=== PATIENT | female | born 1955 | race Caucasian/White ===

== ENCOUNTER 2020-09-16 05:18 | Day surgery (SDC) | payer BC, MEDICAID ==
[2020-09-08 16:11] LABS: BASOPHILS % (AUTO) 0.5 % (0-1); EOSINOPHILS # (AUTO) 0.2 X10'3 (0-0.9); LYMPHOCYTES # (AUTO) 1.9 X10'3 (1.1-4.8); LYMPHOCYTES % (AUTO) 22.2 % (21-51); MEAN CORPUSCULAR HEMOGLOBIN 31.3 PG (27.0-31.0); MEAN CORPUSCULAR VOLUME 92.2 FL (78-98); MEAN PLATELET VOLUME 7.8 FL (7.4-10.4); MONOCYTES # (AUTO) 0.5 X10'3 (0-0.9); NEUTROPHILS # (AUTO) 6.1 X10'3 (1.8-7.7); NEUTROPHILS % (AUTO) 69.3 % (42-75); PRE OP HEMATOCRIT 37.6 % (35.0-45.0); PRE OP HEMOGLOBIN 12.8 g/dL (12.0-16.0); PRE OP PLATELET COUNT 294 X10'3 (140-440); RED BLOOD COUNT 4.08 X10'6 (4.20-5.60); RED CELL DISTRIBUTION WIDTH 14.4 % (11.5-14.5)
[2020-09-08 16:21] LABS: ALBUMIN 3.8 G/DL (3.4-5.0); ALKALINE PHOSPHATASE 136 IU/L (46-116); BLOOD UREA NITROGEN 18 MG/DL (7-18); BUN/CREATININE RATIO 24.7 (6.6-38.0); CALCIUM 9.3 MG/DL (8.5-10.1); CHLORIDE 104 MMOL/L (99-107); CREATININE 0.73 MG/DL (0.40-0.90); PRE OP ALT 12 U/L (30-65); PRE OP ANION GAP 10 (8-16); PRE OP AST 16 U/L (10-37); PRE OP BILIRUB, TOTAL 0.6 MG/DL (0.0-1.0); PRE OP GLUCOSE 85 MG/DL (70-104); PRE OP SODIUM 145 MMOL/L (135-145); TOTAL CARBON DIOXIDE 31.1 MMOL/L (24-32); TOTAL PROTEIN 7.7 G/DL (6.4-8.2); eGFR 81 ML/MIN
[2020-09-08 16:23] LABS: PRE OP POTASSIUM 3.2 MMOL/L (3.4-5.1)
[2020-09-16] VITALS (12 sets, daily range): BP systolic 115–155; BP diastolic 65–88
[~2020-09-16] VITALS: Ht 162.6 cm; Wt 73.4 kg
[~2020-09-16 05:18] MED LIST: ASPI-1397 PO; CARB1TAB36 PO; CEPH500C5 PO; CHOL500049 PO; FLUO-1 PO; FLUO40CA PO; FLUT16SP26; GABA600T13 PO; HYDR-3972 PO; IBUP-1985 PO; LOSA25TA41 PO; PRAM0.129 PO; PREN-187 PO; TRAZ-251 PO; TRIA1TAB3 PO; ringers solution, lacted 1,000 ML IV SCH
[2020-09-16] MEDS ORDERED: ceFAZolin 2gm in dextrose, iso 50 ML IV ONE (05:30)
[2020-09-16] MEDS ORDERED: famotidine 20mg tablet PO ONE (05:30)
[2020-09-16] MEDS ORDERED: sevoflurane 250ml liquid IH ONE (07:00)
[2020-09-16] MEDS ORDERED: fentaNYL/PF 50MCG/1 ML 2ML syringe ONE (07:09)
[2020-09-16] MEDS ORDERED: midazolam 2 mg/2 ml injection ONE (07:09)
[2020-09-16] MEDS ORDERED: propofol inj 20 ML IV ONE ×2 (08:07)
[2020-09-16] MEDS ORDERED: LIDOcaine 2% (20mg/ml) 5ml vial ONE (08:07)
[2020-09-16] MEDS ORDERED: 0.9 % SODIUM CHLORIDE 10 ML VIAL ONE ×2 (08:07→08:38)
[2020-09-16] MEDS ORDERED: ROPIVAcaine 0.5% (5mg/ml) 30ml vial ONE (08:07)
[2020-09-16] MEDS ORDERED: dexamethasone sod phosphate 4mg/ml inj. ONE (08:08)
[2020-09-16] MEDS ORDERED: ondansetron/PF 4mg/2ml inj ONE (08:09)
[2020-09-16] MEDS ORDERED: acetaminophen 1,000mg/100ml IV 100 ML IV PRN (08:35)
[2020-09-16] MEDS ORDERED: ondansetron/PF 4mg/2ml inj IV PRN (08:35)
[2020-09-16] MEDS ORDERED: morphine 2 MG/ML inj. syringe IV PRN (08:35)
[2020-09-16] MEDS ORDERED: hydrALAZINE 20mg/ml inj. IV PRN (08:35)
[2020-09-16] MEDS ORDERED: proCHLORperazine 10 MG/2 ml inj IV PRN (08:35)
[2020-09-16] MEDS ORDERED: ROPIVAcaine 0.2% (10 MG/5 ML) BOLUS INJECTION POPLITEAL PRN (08:35)
[2020-09-16] MEDS ORDERED: ROPIVAcaine 0.2%/PF PUMP/bolus 550 ML POPLITEAL SCH (08:35)
[2020-09-16] MEDS ORDERED: ringers solution, lacted 1,000 ML IV SCH (08:35)
[2020-09-16] MEDS ORDERED: labetalol 20mg/4ml (5mg/ml) syringe IV PRN (08:35)
[2020-09-16] MEDS ORDERED: HYDROmorphone/PF 0.2 MG/ML SYRINGE IV PRN ×2 (08:35)
[2020-09-16] MEDS ORDERED: morphine 4 MG/ML inj SYRINge IV PRN (08:35)
[2020-09-16] MEDS ORDERED: meperidine/PF 25mg/ml syringe IV PRN (08:35)
[2020-09-16] MEDS ORDERED: ePHEDrine 50MG/ML INJ. ONE (08:38)
[2020-09-16] MEDS ORDERED: bacitracin 15gm ointment TP ONE (09:22)
[2020-09-16] MEDS ORDERED: morphine 10mg/ml inj. ONE (09:23)
--- NOTE | 2020-09-16 09:48 | NUR ---
Received from OR via [facility] , accompanied by Anesthesiologist PAT and report given by Anesthesiolgist. PATIENT WITH 20GPIV IN LEFT HAND RUNNING LR AT 100. PATIENTT WITTH SPLINT TO LLE + SENSATION AND CAP REFILL. NO DRAINAGE PRESENT. 10L MASK ON WITH 95% SATURATONS. ON Q NERVE BLOCK SITE PRESENT TO LEFT THIGH/ KNEE AREA. Addendum: 09/16/20 at 0958 by Waylon Matamoros RN, RN Amended: Links added.
--- NOTE | 2020-09-16 11:18 | NUR ---
PATIENT VERBALIZED UNDERSTANDING, OPPORTUNITY TO ASK QUESTIONS GIVEN AND PATIENT COMFORTABLE WITH DC. IV TAKEN OUT WITHOUT COMPLICATION. PATIENT HAS MET ALL DC CRITERIA FOR DC HOME. I HAVE REVIEWED D/C INSTRUCTIONS WITH PATIENT. TAKEN OUT VIA WHEELCHAIR WHERE PATIENT WAS TAKEN HOME WITH ALL BELONGINGS. FRIEND/ BIOMETRY TEACHER NABOR GAVE PATIENT TRANSPORT HOME. ALL DC INSTRUCTIONS GIVEN TO HIM WELL AND SHOWED HIM THE ON Q PAIN DEVICE AND HOW TO REGULATE/ ADJUST. PIVOTED PATIENT TO THE CAR WITH 1PERSON ASSIST. Addendum: 09/16/20 at 1155 by Waylon Matamoros RN, RN Amended: Links added.
== END 2020-09-16 11:18 | disposition home or self-care (01) ==
LOC: PAS IN 05:18 → UNDOADMIN 05:18 → PAS 05:18 → EDSTATUS 07:30 → PAS 11:18
PROVIDERS: ATTEND Podiatrist Foot & Ankle Surgery
DX: M19.072 Primary osteoarthritis, left ankle and foot (principal); I10 Essential (primary) hypertension; G47.33 Obstructive sleep apnea (adult) (pediatric); I25.2 Old myocardial infarction; G25.81 Restless legs syndrome; F32.9 Major depressive disorder, single episode, unspecified; G20 Parkinson's disease; Q87.0 Congenital malformation syndromes predominantly affecting facial appearance; G89.18 Other acute postprocedural pain; Z85.42 Personal history of malignant neoplasm of other parts of uterus; Z20.828 Contact with and (suspected) exposure to other viral communicable diseases; Z79.899 Other long term (current) drug therapy; Z96.643 Presence of artificial hip joint, bilateral; Z98.890 Other specified postprocedural states; Z90.49 Acquired absence of other specified parts of digestive tract; Z90.710 Acquired absence of both cervix and uterus; Z85.89 Personal history of malignant neoplasm of other organs and systems; Z85.038 Personal history of other malignant neoplasm of large intestine; Z88.5 Allergy status to narcotic agent; Z88.8 Allergy status to other drugs, medicaments and biological substances
CPT/HCPCS: 27702; 36415; 64446; 64447; 73600; 76000; 76937; 76942; 80053; 82948; 85025; 87635; 93005; A6223; C1713; C1776; J1100; J1170; J2001; J2250; J2270; J2405; J2704; J2795; J3010; J3370; J7120; A4618; A6253; A6449; A7000

== ENCOUNTER 2021-04-17 09:34 | Emergency (ER) | payer BC, MEDICAID ==
[~2021-04-17] VITALS: Ht 162.6 cm; Wt 68.0 kg
[~2021-04-17 09:34] MED LIST changes: +CEPH-585 PO; -CEPH500C5 PO; -ringers solution, lacted 1,000 ML IV SCH
[2021-04-17 10:17] VITALS: BP 135/84
[2021-04-17] MEDS ORDERED: bacitracin 15gm ointment TP ONE (15:30)
[2021-04-17] MEDS ORDERED: HYDR-3965 PO (17:26)
== END 2021-04-17 18:03 | disposition home or self-care (01) ==
LOC: ER 09:38
DX: S01.81XA Laceration without foreign body of other part of head, initial encounter (principal); S46.912A Strain of unspecified muscle, fascia and tendon at shoulder and upper arm level, left arm, initial encounter; R51.9 Headache, unspecified; M25.512 Pain in left shoulder; Z98.890 Other specified postprocedural states; Z88.5 Allergy status to narcotic agent; Z88.8 Allergy status to other drugs, medicaments and biological substances; Z79.82 Long term (current) use of aspirin; Z79.2 Long term (current) use of antibiotics; Z79.899 Other long term (current) drug therapy; V19.9XXA Pedal cyclist (driver) (passenger) injured in unspecified traffic accident, initial encounter; Y93.89 Activity, other specified; Y92.89 Other specified places as the place of occurrence of the external cause; Y99.8 Other external cause status
CPT/HCPCS: 12013; 70450; 72125; 73030; 99285

== ENCOUNTER 2021-09-30 16:24 | Emergency (ER) | payer BC, MEDICAID ==
[~2021-09-30] VITALS: Ht 165.1 cm; Wt 81.8 kg
[2021-09-30 18:15] LABS: RED BLOOD COUNT 3.62 X10'6 (4.20-5.60); WHITE BLOOD COUNT 21.5 X10'3 (4.5-11.0)
[2021-09-30 18:16] LABS: HEMATOCRIT 34.6 % (35.0-45.0); MEAN CORPUSCULAR HGB CONC 34.6 g/dL (33.0-36.5); MEAN CORPUSCULAR VOLUME 95.5 FL (78-98); MEAN PLATELET VOLUME 6.4 FL (7.4-10.4); PLATELET COUNT 436 X10'3 (140-440); RED CELL DISTRIBUTION WIDTH 13.6 % (11.5-14.5)
[2021-09-30 18:17] LABS: ALANINE AMINOTRANSFERASE 14 U/L (12-78); ALBUMIN 3.3 G/DL (3.4-5.0); ALBUMIN/GLOBULIN RATIO 0.7 (1.1-1.5); ALKALINE PHOSPHATASE 137 IU/L (46-116); ANION GAP 12 (8-16); ASPARTATE AMINO TRANSFERASE 28 U/L (10-37); BILIRUBIN,TOTAL 1.6 MG/DL (0.1-1.0); BLOOD UREA NITROGEN 23 MG/DL (7-18); BUN/CREATININE RATIO 26.4 (6.6-38.0); CALCIUM 9.7 MG/DL (8.5-10.1); CHLORIDE 95 MMOL/L (99-107); CREATININE 0.87 MG/DL (0.40-0.90); GLUCOSE 132 MG/DL (70-104); SODIUM 134 MMOL/L (135-145); TOTAL CARBON DIOXIDE 27.1 MMOL/L (24-32); eGFR 66 ML/MIN
[2021-09-30] MEDS ORDERED: acetaminophen 325mg tablet PO ONE (18:35)
[2021-09-30 18:46] LABS: CLARITY,URINE CLOUDY (Clear); GLUCOSE, URINE NEGATIVE (Neg); KETONES,URINE 15 mg/dl (Neg); LEUKOCYTE ESTERASE ,URINE TRACE (Neg); NITRITES, URINE NEGATIVE (Neg); OCCULT BLOOD,URINE TRACE-INTACT (Neg); PROTEIN,URINE 30 mg/dl (Neg); UROBILINOGEN,URINE 0.2 E.U/dL (0.2-1.0)
[2021-09-30 18:53] LABS: COLOR,URINE AMBER (Yellow); UA COLLECTION TYPE VOIDED
[2021-09-30 18:58] LABS: BACTERIA,URINE 3+ /HPF (Neg); MUCUS STRANDS NONE SEEN /LPF (Neg); RBC,URINE NONE SEEN /HPF (0-2); SQUAMOUS EPITHELIAL CELL,UR FEW /LPF (FEW); WBC,URINE 30-50 /HPF (0-4)
[2021-09-30 19:25] LABS: TOTAL CELLS COUNTED 100
[2021-09-30 19:26] LABS: PLATELET ESTIMATE DECREASED
[2021-09-30] MEDS ORDERED: potassium Cl 20 mEq SR tablet PO ONE (19:55)
[2021-09-30] MEDS ORDERED: normal saline 1000ML IV soln IVB ONE (19:55)
[2021-09-30] MEDS ORDERED: potassium CL 10mEq/100ml bag 100 ML IV ONE (19:55)
[2021-09-30] MEDS ORDERED: magnesium 2GM in 50ml NS 50 ML IV ONE (19:55)
[2021-09-30] MEDS ORDERED: normal saline 1000ml 1,000 ML IV ONE (19:55)
[2021-09-30] MEDS ORDERED: iohexol 350MG/ML 100ml bottle IV ONE (20:05)
[2021-09-30 20:17] LABS: APTT 29 SECONDS (22-32); D-DIMER 1.18 MG/L FEU (0-0.50)
[2021-09-30 20:22] LABS: C-REACTIVE PROTEIN 23.55 MG/DL (0.0-0.5)
[2021-09-30] MEDS ORDERED: CefTRIAXone/D5W-Rocephin 1gm 50 ML IV ONE (21:50)
[2021-09-30 22:42] VITALS: BP 119/75
[2021-10-01] MEDS ORDERED: potassium Cl 20 mEq SR tablet PO STA ×2 (02:37→03:09)
[2021-10-01] MEDS ORDERED: POTA-192 PO (02:39)
[2021-10-01] MEDS ORDERED: CEPH250T PO (02:39)
[2021-10-01] MEDS ORDERED: DEXAMETHASONE 6 MG TABLET PO SCH (08:00)
--- NOTE | 2021-10-01 21:32 | NUR ---
MESSAGE LEFT ON PT'S CONTACT NUMBER TO CALL OR RETURN TO ER FOR ABNORMAL LAB VALUE, POSITIVE BLOOD CULTURE
[2021-10-02] MEDS ORDERED: GABA300C PO (16:40)
[2021-10-02] MEDS ORDERED: IBUP-1985 PO (16:40)
[2021-10-02] MEDS ORDERED: DOCU-21 PO (16:40)
[2021-10-02] MEDS ORDERED: LORA10TA7 PO (16:40)
== END 2021-10-01 03:53 | disposition left against medical advice (07) ==
LOC: ER 16:25
DX: U07.1 COVID-19 (principal); N39.0 Urinary tract infection, site not specified; R53.83 Other fatigue; E87.6 Hypokalemia; D72.829 Elevated white blood cell count, unspecified; R53.1 Weakness; R50.9 Fever, unspecified; R51.9 Headache, unspecified; Z98.890 Other specified postprocedural states; Z88.5 Allergy status to narcotic agent; Z88.8 Allergy status to other drugs, medicaments and biological substances; Z79.82 Long term (current) use of aspirin; Z79.2 Long term (current) use of antibiotics; Z79.899 Other long term (current) drug therapy
CPT/HCPCS: 36415; 71045; 71275; 80053; 81001; 83605; 83880; 84145; 84443; 84484; 85007; 85025; 85379; 85610; 85730; 86140; 87040; 87077; 87088; 87186; 87635; 96365; 96366; 96367; 96368; 99291; C9803; J0696; J3475; J3480; J7030; Q9967

== ENCOUNTER 2021-10-02 07:55 | Inpatient (IN) | payer BC, MEDICAID ==
[~2021-10-02] VITALS: Ht 162.6 cm; Wt 70.5 kg
[~2021-10-02 07:55] MED LIST changes: +CEPH250T PO; +POTA-192 PO
[2021-10-02] MEDS ORDERED: vancomycin/NS 1 GM ADD-VANTAGE 250 ML IV ONE (08:50)
[2021-10-02 09:27] LABS: ALANINE AMINOTRANSFERASE 43 U/L (12-78); ALBUMIN 2.9 G/DL (3.4-5.0); ALBUMIN/GLOBULIN RATIO 0.6 (1.1-1.5); ALKALINE PHOSPHATASE 141 IU/L (46-116); ANION GAP 9 (8-16); ASPARTATE AMINO TRANSFERASE 39 U/L (10-37); BILIRUBIN,TOTAL 0.7 MG/DL (0.1-1.0); BLOOD UREA NITROGEN 32 MG/DL (7-18); BUN/CREATININE RATIO 29.1 (6.6-38.0); CALCIUM 9.7 MG/DL (8.5-10.1); CHLORIDE 99 MMOL/L (99-107); GLUCOSE 137 MG/DL (70-104); SODIUM 135 MMOL/L (135-145); TOTAL CARBON DIOXIDE 26.9 MMOL/L (24-32); TOTAL PROTEIN 7.5 G/DL (6.4-8.2); eGFR 50 ML/MIN
[2021-10-02 09:37] LABS: BASOPHILS % (AUTO) 0.2 % (0-1); EOSINOPHILS % (AUTO) 0.1 % (0-6); HEMATOCRIT 31.1 % (35.0-45.0); HEMOGLOBIN 10.8 g/dl (12.0-16.0); LYMPHOCYTES # (AUTO) 0.8 X10'3 (1.1-4.8); LYMPHOCYTES % (AUTO) 4.9 % (21-51); MEAN CORPUSCULAR HEMOGLOBIN 32.9 PG (27.0-31.0); MEAN CORPUSCULAR HGB CONC 34.9 g/dL (33.0-36.5); MEAN CORPUSCULAR VOLUME 94.4 FL (78-98); MEAN PLATELET VOLUME 6.8 FL (7.4-10.4); MONOCYTES # (AUTO) 1.2 X10'3 (0-0.9); MONOCYTES % (AUTO) 7.3 % (2-12); NEUTROPHILS # (AUTO) 14.4 X10'3 (1.8-7.7); NEUTROPHILS % (AUTO) 87.5 % (42-75); PLATELET COUNT 402 X10'3 (140-440); RED BLOOD COUNT 3.29 X10'6 (4.20-5.60); RED CELL DISTRIBUTION WIDTH 13.8 % (11.5-14.5); WHITE BLOOD COUNT 16.4 X10'3 (4.5-11.0)
--- NOTE | 2021-10-02 10:15 | NUR ---
Patient assisted onto bedpan.
[2021-10-02] MEDS: ceFAZolin/D5W- 1GM premix 50 ML IV SCH ×2 (11:00→23:51)
--- NOTE | 2021-10-02 15:00 | NUR ---
Patient requests to see ER provider; provider notified.
[2021-10-02] MEDS ORDERED: acetaminophen 325mg tablet PO ONE (15:05)
--- NOTE | 2021-10-02 15:30 | NUR ---
Patient assisted onto bedpan; urine specimen sent to lab. Patient given water and apple sauce.
--- NOTE | 2021-10-02 15:49 | NUR ---
Patient given warm blanket.
[2021-10-02] MEDS ORDERED: potassium Cl 20 mEq SR tablet PO PRN (15:50)
[2021-10-02] MEDS ORDERED: magnesium hydroxide 30ml (MOM) UD suspension PO PRN (15:50)
[2021-10-02] MEDS ORDERED: ondansetron/PF 4mg/2ml inj IV PRN (15:50)
[2021-10-02] MEDS ORDERED: magnesium 2GM in 50ml NS 50 ML IV PRN (15:50)
[2021-10-02] MEDS ORDERED: potassium CL 10mEq/100ml bag 100 ML IV PRN (15:50)
[2021-10-02] MEDS ORDERED: acetaminophen 325mg tablet PO PRN (15:50)
[2021-10-02] MEDS ORDERED: magnesium 4gm in 100ml NS 100 ML IV PRN (15:50)
[2021-10-02] MEDS ORDERED: IBUP-1985 PO (16:40)
[2021-10-02] MEDS ORDERED: LORA10TA7 PO (16:40)
[2021-10-02] MEDS ORDERED: DOCU-21 PO (16:40)
[2021-10-02] MEDS ORDERED: GABA300C PO (16:40)
[2021-10-02] MEDS: cefepime 2g/NS 100ml ADVANTAGE 100 ML IV SCH ×2 (16:54→23:51)
[2021-10-02] MEDS ORDERED: docusate sod 100mg capsule PO PRN (17:30)
[2021-10-02] MEDS: Potassium Cl inj 20 MEQ in normal saline 1000ml 990 ML IV SCH (17:35)
[2021-10-02] MEDS: HYDROcodone/acetaminophen 10/325mg tab PO PRN ×2 (17:36→22:02)
[2021-10-02] MEDS: docusate sod 100mg capsule PO SCH (18:32)
[2021-10-02] MEDS: K and/or MAG REPLACEMENT MC SCH (18:33)
[2021-10-02] MEDS: carbidoba-levodopa 25-100mg tablet PO SCH (20:38)
[2021-10-02] MEDS: pregabalin 75mg capsule PO SCH (20:38)
[2021-10-02] MEDS: gabapentin 300mg capsule PO SCH (20:39)
[2021-10-02] MEDS: enoxaparin 40mg/0.4ml syringe SQ SCH (20:39)
[2021-10-02] MEDS: pramipexole 0.25mg tablet PO SCH (20:40)
[2021-10-02 21:15] LABS: ALANINE AMINOTRANSFERASE 44 U/L (12-78); ALBUMIN 2.8 G/DL (3.4-5.0); ALBUMIN/GLOBULIN RATIO 0.6 (1.1-1.5); ALKALINE PHOSPHATASE 138 IU/L (46-116); ANION GAP 7 (8-16); ASPARTATE AMINO TRANSFERASE 25 U/L (10-37); BILIRUBIN,TOTAL 0.7 MG/DL (0.1-1.0); BLOOD UREA NITROGEN 26 MG/DL (7-18); BUN/CREATININE RATIO 29.5 (6.6-38.0); CALCIUM 9.7 MG/DL (8.5-10.1); CHLORIDE 101 MMOL/L (99-107); CREATININE 0.88 MG/DL (0.40-0.90); GLUCOSE 147 MG/DL (70-104); SODIUM 136 MMOL/L (135-145); TOTAL CARBON DIOXIDE 28.4 MMOL/L (24-32); TOTAL PROTEIN 7.4 G/DL (6.4-8.2); eGFR 65 ML/MIN
[2021-10-02 21:22] LABS: POTASSIUM 2.9 MMOL/L (3.5-5.1)
[2021-10-02] MEDS: potassium Cl 20 mEq SR tablet PO PRN (21:33)
[2021-10-02] MEDS: HYDROcodone/acetaminophen 5mg/325mg tablet PO PRN (23:50)
[2021-10-03] MEDS: potassium Cl 20 mEq SR tablet PO PRN (00:52)
--- NOTE | 2021-10-03 01:54 | NUR ---
PT RESTING QUIETLY IN BED.
[2021-10-03] MEDS: potassium Cl 20mEq in NS 1,000 ML IV SCH ×3 (03:54→23:00)
[2021-10-03] MEDS: Potassium Cl inj 20 MEQ in normal saline 1000ml 990 ML IV SCH (06:25)
--- NOTE | 2021-10-03 06:41 | NUR ---
first contact with pt. requesting bed shay and pain meds. pt able to lift hips indepenently. a/ox4, reports headache. updated pt on plan for room upstairs. no distress.
[2021-10-03] MEDS: K and/or MAG REPLACEMENT MC SCH ×2 (07:17→20:00)
[2021-10-03] MEDS: HYDROcodone/acetaminophen 10/325mg tab PO PRN ×2 (07:25→20:29)
[2021-10-03] MEDS: fluticasone nasal spray 16GM bottle NS SCH (08:00)
[2021-10-03] MEDS ORDERED: [UNRECOGNIZED DRUG - REMARK] PO SCH (08:00)
[2021-10-03] MEDS: nicotine 21mg patch - 24 hr TD SCH (08:00)
[2021-10-03] MEDS: loratadine 10mg tablet PO SCH (08:19)
[2021-10-03] MEDS: losartan 25mg tablet PO SCH (08:19)
[2021-10-03] MEDS: docusate sod 100mg capsule PO SCH ×2 (08:19→20:24)
[2021-10-03] MEDS: FLUoxetine 20mg capsule PO SCH (08:20)
[2021-10-03] MEDS: aspirin 81mg, enteric-coated 1 TAB TABLET.DR PO SCH (08:20)
[2021-10-03] MEDS: pregabalin 75mg capsule PO SCH ×2 (08:20→20:26)
[2021-10-03] MEDS: gabapentin 300mg capsule PO SCH ×3 (08:20→20:27)
[2021-10-03] MEDS: enoxaparin 40mg/0.4ml syringe SQ SCH ×2 (08:21→20:28)
[2021-10-03] MEDS: carbidoba-levodopa 25-100mg tablet PO SCH ×3 (08:21→20:27)
[2021-10-03 08:23] LABS: BASOPHILS % (AUTO) 0.2 % (0-1); EOSINOPHILS % (AUTO) 0.3 % (0-6); HEMATOCRIT 34.3 % (35.0-45.0); HEMOGLOBIN 11.4 g/dl (12.0-16.0); LYMPHOCYTES % (AUTO) 7.8 % (21-51); MEAN CORPUSCULAR HEMOGLOBIN 31.8 PG (27.0-31.0); MEAN CORPUSCULAR HGB CONC 33.3 g/dL (33.0-36.5); MEAN CORPUSCULAR VOLUME 95.5 FL (78-98); MEAN PLATELET VOLUME 6.6 FL (7.4-10.4); MONOCYTES # (AUTO) 0.8 X10'3 (0-0.9); MONOCYTES % (AUTO) 6.8 % (2-12); NEUTROPHILS # (AUTO) 10.4 X10'3 (1.8-7.7); NEUTROPHILS % (AUTO) 84.9 % (42-75); PLATELET COUNT 362 X10'3 (140-440); RED BLOOD COUNT 3.59 X10'6 (4.20-5.60); WHITE BLOOD COUNT 12.3 X10'3 (4.5-11.0)
[2021-10-03 08:37] LABS: ALANINE AMINOTRANSFERASE 35 U/L (12-78); ALBUMIN 2.7 G/DL (3.4-5.0); ALBUMIN/GLOBULIN RATIO 0.6 (1.1-1.5); ALKALINE PHOSPHATASE 142 IU/L (46-116); ANION GAP 7 (8-16); ASPARTATE AMINO TRANSFERASE 27 U/L (10-37); BILIRUBIN,TOTAL 0.7 MG/DL (0.1-1.0); BLOOD UREA NITROGEN 21 MG/DL (7-18); BUN/CREATININE RATIO 29.2 (6.6-38.0); CALCIUM 9.7 MG/DL (8.5-10.1); CHLORIDE 103 MMOL/L (99-107); CREATININE 0.72 MG/DL (0.40-0.90); GLUCOSE 115 MG/DL (70-104); MAGNESIUM 2.2 MG/DL (1.5-2.4); POTASSIUM 4.2 MMOL/L (3.5-5.1); SODIUM 136 MMOL/L (135-145); TOTAL CARBON DIOXIDE 26.5 MMOL/L (24-32); TOTAL PROTEIN 7.4 G/DL (6.4-8.2); eGFR 82 ML/MIN
[2021-10-03] MEDS: cefepime 2g/NS 100ml ADVANTAGE 100 ML IV SCH ×3 (08:47→23:59)
--- NOTE | 2021-10-03 08:48 | NUR ---
breakfast tray provided. pt sitting in bed, tolerating well.
--- NOTE | 2021-10-03 11:15 | NUR ---
medicated for pain, per request. reports headache 06/18.
[2021-10-03] MEDS: normal saline 1000ml 1,000 ML IV SCH ×2 (13:30→23:12)
--- NOTE | 2021-10-03 14:23 | NUR ---
dr. stern at bedside
--- NOTE | 2021-10-03 14:46 | NUR ---
pt to CT
--- NOTE | 2021-10-03 14:58 | NUR ---
returned from ct. purewick and fluids reconnected.
[2021-10-03 19:30] VITALS: BP 134/76
[2021-10-03] MEDS: lactobacillus rhamnosus 10,000 MMU CELLS/CAPSULE PO SCH (20:24)
[2021-10-03] MEDS: pramipexole 0.25mg tablet PO SCH (20:27)
[2021-10-03] MEDS: salt irrigation nasal spray 45 ML SPRAY NS SCH (20:29)
[2021-10-03 22:00] VITALS: BP 134/76
--- NOTE | 2021-10-03 23:12 | NUR ---
Prior bags of fluids still infusing, more than 500ml bag left in each. Charted against administering new bags.
--- NOTE | 2021-10-03 23:14 | NUR ---
Home medications logged and sent to pharmacy.
[2021-10-04 02:00] VITALS: BP 155/62
[2021-10-04] MEDS: HYDROcodone/acetaminophen 10/325mg tab PO PRN ×4 (02:47→19:34)
[2021-10-04 06:00] VITALS: BP 168/78
[2021-10-04 07:36] LABS: BASOPHILS % (AUTO) 0.4 % (0-1); EOSINOPHILS % (AUTO) 0.3 % (0-6); HEMATOCRIT 29.7 % (35.0-45.0); HEMOGLOBIN 10.1 g/dl (12.0-16.0); LYMPHOCYTES # (AUTO) 1.3 X10'3 (1.1-4.8); LYMPHOCYTES % (AUTO) 12.5 % (21-51); MEAN CORPUSCULAR HEMOGLOBIN 32.3 PG (27.0-31.0); MEAN CORPUSCULAR VOLUME 95.2 FL (78-98); MEAN PLATELET VOLUME 6.5 FL (7.4-10.4); MONOCYTES # (AUTO) 0.8 X10'3 (0-0.9); MONOCYTES % (AUTO) 7.7 % (2-12); NEUTROPHILS # (AUTO) 8.4 X10'3 (1.8-7.7); NEUTROPHILS % (AUTO) 79.1 % (42-75); PLATELET COUNT 319 X10'3 (140-440); RED BLOOD COUNT 3.12 X10'6 (4.20-5.60); RED CELL DISTRIBUTION WIDTH 13.7 % (11.5-14.5); WHITE BLOOD COUNT 10.7 X10'3 (4.5-11.0)
[2021-10-04 07:41] LABS: D-DIMER 1.55 MG/L FEU (0-0.50)
[2021-10-04] MEDS: pregabalin 75mg capsule PO SCH ×2 (07:49→19:32)
[2021-10-04] MEDS: loratadine 10mg tablet PO SCH (07:49)
[2021-10-04] MEDS: docusate sod 100mg capsule PO SCH ×2 (07:50→19:33)
[2021-10-04] MEDS: aspirin 81mg, enteric-coated 1 TAB TABLET.DR PO SCH (07:50)
[2021-10-04] MEDS: lactobacillus rhamnosus 10,000 MMU CELLS/CAPSULE PO SCH ×2 (07:50→19:32)
[2021-10-04] MEDS: carbidoba-levodopa 25-100mg tablet PO SCH ×4 (07:50→19:33)
[2021-10-04] MEDS: losartan 25mg tablet PO SCH (07:50)
[2021-10-04] MEDS: FLUoxetine 20mg capsule PO SCH (07:51)
[2021-10-04] MEDS: gabapentin 300mg capsule PO SCH ×4 (07:51→19:33)
[2021-10-04] MEDS: cefepime 2g/NS 100ml ADVANTAGE 100 ML IV SCH ×2 (07:51→16:08)
[2021-10-04] MEDS: fluticasone nasal spray 16GM bottle NS SCH (07:52)
[2021-10-04] MEDS: salt irrigation nasal spray 45 ML SPRAY NS SCH ×4 (07:52→19:48)
[2021-10-04] MEDS: enoxaparin 40mg/0.4ml syringe SQ SCH ×2 (07:55→19:35)
[2021-10-04] MEDS: nicotine 21mg patch - 24 hr TD SCH (08:00)
[2021-10-04] MEDS: K and/or MAG REPLACEMENT MC SCH ×2 (08:00→19:35)
[2021-10-04 08:24] LABS: ALANINE AMINOTRANSFERASE 20 U/L (12-78); ALBUMIN 2.3 G/DL (3.4-5.0); ALBUMIN/GLOBULIN RATIO 0.6 (1.1-1.5); ALKALINE PHOSPHATASE 125 IU/L (46-116); ANION GAP 7 (8-16); ASPARTATE AMINO TRANSFERASE 24 U/L (10-37); BILIRUBIN,TOTAL 0.6 MG/DL (0.1-1.0); BLOOD UREA NITROGEN 14 MG/DL (7-18); C-REACTIVE PROTEIN 14.51 MG/DL (0.0-0.5); CALCIUM 8.5 MG/DL (8.5-10.1); CHLORIDE 105 MMOL/L (99-107); CREATININE 0.56 MG/DL (0.40-0.90); GLUCOSE 100 MG/DL (70-104); MAGNESIUM 2.1 MG/DL (1.5-2.4); SODIUM 139 MMOL/L (135-145); TOTAL CARBON DIOXIDE 27.1 MMOL/L (24-32); eGFR > 90 ML/MIN
[2021-10-04 08:50] LABS: PLATELET ESTIMATE NORMAL; TOTAL CELLS COUNTED 100
[2021-10-04] MEDS: potassium Cl 20mEq in NS 1,000 ML IV SCH ×2 (09:00→19:46)
[2021-10-04] MEDS: normal saline 1000ml 1,000 ML IV SCH ×2 (09:30→19:46)
[2021-10-04 10:00] VITALS: BP 149/74
[2021-10-04 18:00] VITALS: BP 166/85
[2021-10-04] MEDS: pramipexole 0.25mg tablet PO SCH (19:33)
[2021-10-04 22:00] VITALS: BP 137/68
[2021-10-05] MEDS: cefepime 2g/NS 100ml ADVANTAGE 100 ML IV SCH ×3 (00:02→16:07)
[2021-10-05] MEDS: HYDROcodone/acetaminophen 10/325mg tab PO PRN ×4 (01:17→19:28)
[2021-10-05 02:00] VITALS: BP 150/86
[2021-10-05] MEDS: potassium Cl 20mEq in NS 1,000 ML IV SCH ×3 (05:00→15:19)
[2021-10-05] MEDS: normal saline 1000ml 1,000 ML IV SCH ×2 (05:26→16:07)
[2021-10-05 06:00] VITALS: BP 131/86
[2021-10-05] MEDS: loratadine 10mg tablet PO SCH (07:13)
[2021-10-05] MEDS: FLUoxetine 20mg capsule PO SCH (07:13)
[2021-10-05] MEDS: lactobacillus rhamnosus 10,000 MMU CELLS/CAPSULE PO SCH ×2 (07:13→19:25)
[2021-10-05] MEDS: pregabalin 75mg capsule PO SCH ×2 (07:13→19:25)
[2021-10-05] MEDS: docusate sod 100mg capsule PO SCH ×2 (07:13→19:25)
[2021-10-05] MEDS: losartan 25mg tablet PO SCH (07:13)
[2021-10-05] MEDS: gabapentin 300mg capsule PO SCH ×4 (07:13→19:26)
[2021-10-05] MEDS: carbidoba-levodopa 25-100mg tablet PO SCH ×4 (07:13→19:25)
[2021-10-05] MEDS: aspirin 81mg, enteric-coated 1 TAB TABLET.DR PO SCH (07:13)
[2021-10-05] MEDS: nicotine 21mg patch - 24 hr TD SCH (07:14)
[2021-10-05] MEDS: salt irrigation nasal spray 45 ML SPRAY NS SCH ×4 (07:14→19:26)
[2021-10-05] MEDS: enoxaparin 40mg/0.4ml syringe SQ SCH ×2 (07:14→19:27)
[2021-10-05] MEDS: K and/or MAG REPLACEMENT MC SCH ×2 (07:15→19:15)
[2021-10-05] MEDS: fluticasone nasal spray 16GM bottle NS SCH (07:15)
[2021-10-05 10:00] VITALS: BP 148/67
[2021-10-05 10:08] LABS: ALANINE AMINOTRANSFERASE 13 U/L (12-78); ALBUMIN 2.3 G/DL (3.4-5.0); ALBUMIN/GLOBULIN RATIO 0.5 (1.1-1.5); ALKALINE PHOSPHATASE 131 IU/L (46-116); ANION GAP 8 (8-16); ASPARTATE AMINO TRANSFERASE 29 U/L (10-37); BILIRUBIN,TOTAL 0.7 MG/DL (0.1-1.0); BLOOD UREA NITROGEN 10 MG/DL (7-18); BUN/CREATININE RATIO 16.4 (6.6-38.0); C-REACTIVE PROTEIN 10.24 MG/DL (0.0-0.5); CALCIUM 8.9 MG/DL (8.5-10.1); CHLORIDE 102 MMOL/L (99-107); CREATININE 0.61 MG/DL (0.40-0.90); GLUCOSE 136 MG/DL (70-104); MAGNESIUM 1.7 MG/DL (1.5-2.4); POTASSIUM 3.4 MMOL/L (3.5-5.1); SODIUM 136 MMOL/L (135-145); TOTAL CARBON DIOXIDE 25.6 MMOL/L (24-32); TOTAL PROTEIN 6.7 G/DL (6.4-8.2); eGFR > 90 ML/MIN
[2021-10-05 18:00] VITALS: BP 157/77
[2021-10-05] MEDS: pramipexole 0.25mg tablet PO SCH (19:26)
[2021-10-05 22:00] VITALS: BP 146/77
[2021-10-06] MEDS: cefepime 2g/NS 100ml ADVANTAGE 100 ML IV SCH ×2 (00:50→07:43)
[2021-10-06] MEDS: potassium Cl 20mEq in NS 1,000 ML IV SCH ×3 (00:52→21:00)
[2021-10-06] MEDS: normal saline 1000ml 1,000 ML IV SCH ×3 (00:53→21:30)
[2021-10-06] MEDS: HYDROcodone/acetaminophen 10/325mg tab PO PRN ×2 (01:26→20:55)
[2021-10-06 02:00] VITALS: BP 150/86
[2021-10-06 06:00] VITALS: BP 163/81
[2021-10-06] MEDS: enoxaparin 40mg/0.4ml syringe SQ SCH ×2 (07:41→20:43)
[2021-10-06] MEDS: lactobacillus rhamnosus 10,000 MMU CELLS/CAPSULE PO SCH ×2 (07:42→20:39)
[2021-10-06] MEDS: carbidoba-levodopa 25-100mg tablet PO SCH ×4 (07:42→20:40)
[2021-10-06] MEDS: pregabalin 75mg capsule PO SCH ×2 (07:42→20:39)
[2021-10-06] MEDS: losartan 25mg tablet PO SCH (07:42)
[2021-10-06] MEDS: docusate sod 100mg capsule PO SCH ×2 (07:42→20:39)
[2021-10-06] MEDS: aspirin 81mg, enteric-coated 1 TAB TABLET.DR PO SCH (07:42)
[2021-10-06] MEDS: FLUoxetine 20mg capsule PO SCH (07:42)
[2021-10-06] MEDS: loratadine 10mg tablet PO SCH (07:43)
[2021-10-06] MEDS: fluticasone nasal spray 16GM bottle NS SCH (07:43)
[2021-10-06] MEDS: salt irrigation nasal spray 45 ML SPRAY NS SCH ×4 (07:43→20:40)
[2021-10-06] MEDS: gabapentin 300mg capsule PO SCH ×4 (08:00→20:39)
[2021-10-06] MEDS: nicotine 21mg patch - 24 hr TD SCH (08:00)
[2021-10-06] MEDS: K and/or MAG REPLACEMENT MC SCH ×2 (08:00→20:00)
[2021-10-06 08:55] LABS: BASOPHILS # (AUTO) 0.1 X10'3 (0-0.2); BASOPHILS % (AUTO) 0.5 % (0-1); EOSINOPHILS # (AUTO) 0.2 X10'3 (0-0.9); EOSINOPHILS % (AUTO) 1.6 % (0-6); HEMATOCRIT 27.8 % (35.0-45.0); HEMOGLOBIN 9.7 g/dl (12.0-16.0); LYMPHOCYTES # (AUTO) 0.9 X10'3 (1.1-4.8); LYMPHOCYTES % (AUTO) 7.7 % (21-51); MEAN CORPUSCULAR HEMOGLOBIN 32.4 PG (27.0-31.0); MEAN CORPUSCULAR HGB CONC 34.8 g/dL (33.0-36.5); MEAN CORPUSCULAR VOLUME 92.9 FL (78-98); MEAN PLATELET VOLUME 6.7 FL (7.4-10.4); MONOCYTES # (AUTO) 0.7 X10'3 (0-0.9); MONOCYTES % (AUTO) 6.2 % (2-12); NEUTROPHILS # (AUTO) 9.8 X10'3 (1.8-7.7); PLATELET COUNT 333 X10'3 (140-440); RED BLOOD COUNT 2.99 X10'6 (4.20-5.60); RED CELL DISTRIBUTION WIDTH 13.8 % (11.5-14.5); WHITE BLOOD COUNT 11.7 X10'3 (4.5-11.0)
[2021-10-06 09:06] LABS: D-DIMER 1.35 MG/L FEU (0-0.50)
[2021-10-06 09:11] LABS: ALANINE AMINOTRANSFERASE 24 U/L (12-78); ALBUMIN 2.4 G/DL (3.4-5.0); ALBUMIN/GLOBULIN RATIO 0.7 (1.1-1.5); ALKALINE PHOSPHATASE 139 IU/L (46-116); ANION GAP 9 (8-16); ASPARTATE AMINO TRANSFERASE 35 U/L (10-37); BILIRUBIN,TOTAL 0.5 MG/DL (0.1-1.0); BLOOD UREA NITROGEN 8 MG/DL (7-18); CALCIUM 8.8 MG/DL (8.5-10.1); CHLORIDE 102 MMOL/L (99-107); CREATININE 0.57 MG/DL (0.40-0.90); GLUCOSE 109 MG/DL (70-104); MAGNESIUM 1.7 MG/DL (1.5-2.4); POTASSIUM 3.5 MMOL/L (3.5-5.1); SODIUM 139 MMOL/L (135-145); TOTAL CARBON DIOXIDE 27.9 MMOL/L (24-32); eGFR > 90 ML/MIN
[2021-10-06 10:00] VITALS: BP 141/69
[2021-10-06] MEDS: CefTRIAXone 2gm/D5W 50ml BAG 50 ML IV SCH (12:05)
[2021-10-06] MEDS ORDERED: LORazepam 1 MG tablet PO ONE (13:25)
--- NOTE | 2021-10-06 15:57 | NUR ---
Initial: Pt admit DX COVID-19, SIRS, UTI, significant generalized headache, extensive sinusitis, and acute renal insufficiency likely secondary to dehydration per DO note. Pt PO ~25% avg regular diet partially meeting needs. RD attempted to contact RN as well as pt via TC regarding PO trends however not successful. RD recommends Ensure Enlive TIDWM to assist meeting protein/kcal needs; DO notified. No BM yet this admit 4 days receiving routine colace. Will continue to monitor for further nutrition intervention needs this admit. Rec: 1. continue regular diet; encourage PO 2. Ensure Enlive TIDWM; pending DO verification in EMR 3. routine bowel care 4. scaled wt this admit; subsequent weekly wts Addendum: 10/06/21 at [address] Amended: Links added.
[2021-10-06 18:00] VITALS: BP 141/84
[2021-10-06] MEDS: lactose-reduced food (Ensure Enlive) - 237ml bottle PO SCH (18:00)
[2021-10-06] MEDS: pramipexole 0.25mg tablet PO SCH (20:39)
[2021-10-06 22:00] VITALS: BP 148/54
[2021-10-07 02:00] VITALS: BP 156/72
--- NOTE | 2021-10-07 05:00 | NUR ---
IV infiltrated. I attempted twice to reinsert it but was unsuccessful
[2021-10-07 06:00] VITALS: BP 147/91
--- NOTE | 2021-10-07 06:46 | NUR ---
Change of shift report given to Odalis LOPEZ Addendum: 10/07/21 at 0646 by Chyna Acosta RN Amended: Links added.
[2021-10-07] MEDS: potassium Cl 20mEq in NS 1,000 ML IV SCH (07:00)
[2021-10-07] MEDS: normal saline 1000ml 1,000 ML IV SCH (07:30)
[2021-10-07] MEDS: docusate sod 100mg capsule PO SCH ×2 (07:56→20:20)
[2021-10-07] MEDS: aspirin 81mg, enteric-coated 1 TAB TABLET.DR PO SCH (07:56)
[2021-10-07] MEDS: pregabalin 75mg capsule PO SCH ×2 (07:56→20:20)
[2021-10-07] MEDS: lactobacillus rhamnosus 10,000 MMU CELLS/CAPSULE PO SCH ×2 (07:56→20:21)
[2021-10-07] MEDS: gabapentin 300mg capsule PO SCH ×4 (07:56→20:21)
[2021-10-07] MEDS: carbidoba-levodopa 25-100mg tablet PO SCH ×4 (07:56→20:21)
[2021-10-07] MEDS: FLUoxetine 20mg capsule PO SCH (07:56)
[2021-10-07] MEDS: loratadine 10mg tablet PO SCH (07:56)
[2021-10-07] MEDS: enoxaparin 40mg/0.4ml syringe SQ SCH ×2 (07:57→20:20)
[2021-10-07] MEDS: losartan 25mg tablet PO SCH (07:57)
[2021-10-07] MEDS: fluticasone nasal spray 16GM bottle NS SCH (07:57)
[2021-10-07] MEDS: salt irrigation nasal spray 45 ML SPRAY NS SCH ×4 (07:58→21:48)
[2021-10-07] MEDS: lactose-reduced food (Ensure Enlive) - 237ml bottle PO SCH ×3 (08:00→18:00)
[2021-10-07] MEDS: CefTRIAXone 2gm/D5W 50ml BAG 50 ML IV SCH (08:00)
[2021-10-07] MEDS: K and/or MAG REPLACEMENT MC SCH ×2 (08:00→20:00)
[2021-10-07] MEDS: HYDROcodone/acetaminophen 10/325mg tab PO PRN ×3 (08:05→21:47)
[2021-10-07 11:00] VITALS: BP 125/59
[2021-10-07] MEDS: amox tr/potassium clavulanate 875/125mg TAB PO SCH ×2 (13:39→17:18)
[2021-10-07 15:00] VITALS: BP 128/63
[2021-10-07 18:00] VITALS: BP 121/72
--- NOTE | 2021-10-07 18:40 | NUR ---
Problems reprioritized. Patient report given, questions answered & plan of care reviewed with JESSICA Salinas.
--- NOTE | 2021-10-07 18:45 | NUR ---
Patient in room [facility] 4010. I have received report from JULIETA LOPEZ and had the opportunity to ask questions and assume patient care.
[2021-10-07] MEDS: pramipexole 0.25mg tablet PO SCH (20:21)
[2021-10-07 22:06] VITALS: BP 131/65
[2021-10-07] MEDS: acetaminophen 325mg tablet PO PRN (23:33)
--- NOTE | 2021-10-07 23:36 | NUR ---
TYLENOL GIVEN FOR C/O HEADACHE PAIN 02/16. HAS HAD 975 MG OF TYLENOL THIS DAY.
--- NOTE | 2021-10-08 06:14 | NUR ---
REPORT TO EARLY SHIFT RN
[2021-10-08] MEDS: lactose-reduced food (Ensure Enlive) - 237ml bottle PO SCH ×3 (08:00→18:00)
[2021-10-08] MEDS: K and/or MAG REPLACEMENT MC SCH ×2 (08:00→20:00)
[2021-10-08 08:22] LABS: D-DIMER 1.32 MG/L FEU (0-0.50)
[2021-10-08 08:44] LABS: C-REACTIVE PROTEIN 8.05 MG/DL (0.0-0.5)
[2021-10-08] MEDS: carbidoba-levodopa 25-100mg tablet PO SCH ×4 (08:51→20:15)
[2021-10-08] MEDS: aspirin 81mg, enteric-coated 1 TAB TABLET.DR PO SCH (08:52)
[2021-10-08] MEDS: loratadine 10mg tablet PO SCH (08:53)
[2021-10-08] MEDS: losartan 25mg tablet PO SCH (08:53)
[2021-10-08] MEDS: lactobacillus rhamnosus 10,000 MMU CELLS/CAPSULE PO SCH ×2 (08:53→20:14)
[2021-10-08] MEDS: pregabalin 75mg capsule PO SCH ×2 (08:53→20:14)
[2021-10-08] MEDS: amox tr/potassium clavulanate 875/125mg TAB PO SCH ×2 (08:54→17:43)
[2021-10-08] MEDS: gabapentin 300mg capsule PO SCH ×4 (08:55→20:14)
[2021-10-08] MEDS: FLUoxetine 20mg capsule PO SCH (08:55)
[2021-10-08] MEDS: docusate sod 100mg capsule PO SCH ×2 (08:55→20:14)
[2021-10-08] MEDS: salt irrigation nasal spray 45 ML SPRAY NS SCH ×4 (08:57→20:10)
[2021-10-08] MEDS: enoxaparin 40mg/0.4ml syringe SQ SCH ×2 (08:57→20:15)
[2021-10-08] MEDS: fluticasone nasal spray 16GM bottle NS SCH (08:58)
[2021-10-08 10:00] VITALS: BP 141/62
--- NOTE | 2021-10-08 10:01 | NUR ---
Dr. Leong requesting PT to work with this patient to evaluate for discharge, per PT the two therapists working today can not work with covid patients. Will make aware.
[2021-10-08 10:15] LABS: BASOPHILS # (AUTO) 0.1 X10'3 (0-0.2); EOSINOPHILS # (AUTO) 0.2 X10'3 (0-0.9); EOSINOPHILS % (AUTO) 3.2 % (0-6); HEMATOCRIT 28.9 % (35.0-45.0); HEMOGLOBIN 9.8 g/dl (12.0-16.0); LYMPHOCYTES # (AUTO) 1.1 X10'3 (1.1-4.8); LYMPHOCYTES % (AUTO) 15.5 % (21-51); MEAN CORPUSCULAR HEMOGLOBIN 32.1 PG (27.0-31.0); MEAN CORPUSCULAR HGB CONC 33.9 g/dL (33.0-36.5); MEAN CORPUSCULAR VOLUME 94.8 FL (78-98); MEAN PLATELET VOLUME 7.1 FL (7.4-10.4); MONOCYTES # (AUTO) 0.6 X10'3 (0-0.9); MONOCYTES % (AUTO) 8.5 % (2-12); NEUTROPHILS # (AUTO) 5.1 X10'3 (1.8-7.7); NEUTROPHILS % (AUTO) 71.8 % (42-75); PLATELET COUNT 399 X10'3 (140-440); RED BLOOD COUNT 3.05 X10'6 (4.20-5.60); RED CELL DISTRIBUTION WIDTH 13.8 % (11.5-14.5); WHITE BLOOD COUNT 7.1 X10'3 (4.5-11.0)
[2021-10-08 10:20] LABS: ALANINE AMINOTRANSFERASE 40 U/L (12-78); ALBUMIN 2.6 G/DL (3.4-5.0); ALBUMIN/GLOBULIN RATIO 0.7 (1.1-1.5); ALKALINE PHOSPHATASE 130 IU/L (46-116); ANION GAP 10 (8-16); ASPARTATE AMINO TRANSFERASE 32 U/L (10-37); BILIRUBIN,TOTAL 0.4 MG/DL (0.1-1.0); BLOOD UREA NITROGEN 11 MG/DL (7-18); CALCIUM 9.2 MG/DL (8.5-10.1); CHLORIDE 104 MMOL/L (99-107); CREATININE 0.58 MG/DL (0.40-0.90); GLUCOSE 106 MG/DL (70-104); POTASSIUM 3.7 MMOL/L (3.5-5.1); SODIUM 143 MMOL/L (135-145); TOTAL CARBON DIOXIDE 29.1 MMOL/L (24-32); TOTAL PROTEIN 6.5 G/DL (6.4-8.2); eGFR > 90 ML/MIN
[2021-10-08 10:56] LABS: MAGNESIUM 2.1 MG/DL (1.5-2.4)
[2021-10-08] MEDS: HYDROcodone/acetaminophen 5mg/325mg tablet PO PRN ×2 (14:37→15:50)
--- NOTE | 2021-10-08 14:47 | NUR ---
Walked patient 300 feet with front wheel walker minx1 to assist. patient states she has FWW at home.
--- NOTE | 2021-10-08 14:47 | NUR ---
Acting as resource RN i admistered patients scheduled ocean nasal spray, sinemet and gabapentin. Also administered a norco for pain for primary RN.
[2021-10-08 15:00] VITALS: BP 123/63
[2021-10-08 18:00] VITALS: BP 127/58
[2021-10-08] MEDS: pramipexole 0.25mg tablet PO SCH (20:15)
[2021-10-08] MEDS: HYDROcodone/acetaminophen 10/325mg tab PO PRN (20:16)
[2021-10-08 22:00] VITALS: BP 129/76
[2021-10-09 02:00] VITALS: BP 145/76
[2021-10-09] MEDS: acetaminophen 325mg tablet PO PRN (02:16)
--- NOTE | 2021-10-09 06:19 | NUR ---
Problems reprioritized. Patient report given, questions answered & plan of care reviewed with JESSICA Del Cid.
[2021-10-09 07:18] LABS: D-DIMER 1.18 MG/L FEU (0-0.50)
[2021-10-09] MEDS: lactose-reduced food (Ensure Enlive) - 237ml bottle PO SCH ×2 (08:00→13:25)
[2021-10-09] MEDS: gabapentin 300mg capsule PO SCH ×2 (08:00→13:26)
[2021-10-09] MEDS: loratadine 10mg tablet PO SCH (08:06)
[2021-10-09] MEDS: amox tr/potassium clavulanate 875/125mg TAB PO SCH (08:06)
[2021-10-09] MEDS: FLUoxetine 20mg capsule PO SCH (08:06)
[2021-10-09] MEDS: carbidoba-levodopa 25-100mg tablet PO SCH ×2 (08:06→13:26)
[2021-10-09 08:07] VITALS: BP_SYST 120
[2021-10-09] MEDS: losartan 25mg tablet PO SCH (08:07)
[2021-10-09] MEDS: pregabalin 75mg capsule PO SCH (08:07)
[2021-10-09] MEDS: docusate sod 100mg capsule PO SCH (08:07)
[2021-10-09] MEDS: fluticasone nasal spray 16GM bottle NS SCH (08:07)
[2021-10-09] MEDS: salt irrigation nasal spray 45 ML SPRAY NS SCH ×2 (08:07→13:31)
[2021-10-09] MEDS: aspirin 81mg, enteric-coated 1 TAB TABLET.DR PO SCH (08:07)
[2021-10-09] MEDS: lactobacillus rhamnosus 10,000 MMU CELLS/CAPSULE PO SCH (08:07)
[2021-10-09] MEDS: K and/or MAG REPLACEMENT MC SCH (08:08)
[2021-10-09] MEDS: enoxaparin 40mg/0.4ml syringe SQ SCH (08:08)
[2021-10-09] MEDS: HYDROcodone/acetaminophen 10/325mg tab PO PRN (08:12)
[2021-10-09] MEDS ORDERED: AMOX-580 PO (13:19)
[2021-10-09] MEDS ORDERED: ASPI-107 PO (13:21)
== END 2021-10-09 14:00 | disposition home or self-care (01) | DRG 871 ==
LOC: ER 07:56 → ED HOLD 15:58 → ORTHO 4S 10-03 19:18
PROVIDERS: ADMIT Family Medicine; ATTEND Family Medicine
DX: A40.9 Streptococcal sepsis, unspecified (principal); U07.1 COVID-19; N17.0 Acute kidney failure with tubular necrosis; J12.82 Pneumonia due to coronavirus disease 2019; N39.0 Urinary tract infection, site not specified; B96.20 Unspecified Escherichia coli [E. coli] as the cause of diseases classified elsewhere; E86.0 Dehydration; Z60.2 Problems related to living alone; Z96.643 Presence of artificial hip joint, bilateral; E87.6 Hypokalemia; F32.A Depression, unspecified; G20 Parkinson's disease; I10 Essential (primary) hypertension; J32.4 Chronic pansinusitis; Z79.82 Long term (current) use of aspirin; Z82.49 Family history of ischemic heart disease and other diseases of the circulatory system; Z88.5 Allergy status to narcotic agent; Z88.8 Allergy status to other drugs, medicaments and biological substances; Z79.899 Other long term (current) drug therapy; Z80.9 Family history of malignant neoplasm, unspecified
CPT/HCPCS: 36415; 70450; 70551; 80053; 83605; 83735; 84145; 85007; 85025; 85379; 86140; 87040; 87070; 87075; 87077; 87081; 87102; 87186; 96365; 96366; 97116; 97161; 97530; 99284; G0378; J0690; J0692; J0696; J1650; J3370; J3480; J7030